=== PATIENT | male | born 1960 | race Caucasian/White ===

== ENCOUNTER → 2024-03-08 01:38 | Outpatient (CLI) | payer BC, SELFPAY ==
--- NOTE | 2024-03-08 06:45 | DI.CT_ITS ---
Exam(s) CT LOWER EXTREMITY LT WO EXAM: CT LOWER EXTREMITY LT WO CLINICAL HISTORY: PAIN,SURGICAL PLANNING,oa lt knee,closed fx with malunion,s82.009p,m17.12. TECHNIQUE: Imaging Protocol: Axial computed tomography images with coronal and sagittal reformatted images were created and reviewed. CONTRAST MATERIAL: Intravenous: None COMPARISON: DOC,DX XR KNEE 4V LT from 09/07/2023 FINDINGS: There is a small-moderate size joint effusion. There is patella [place]. There are multiple fracture fragments of the lower pole the patella which exh ibit nonunion and the patella proper is retracted proximally. There is some calcification noted in t he patellar ligament (which is attached to the most inferior fracture fragment of the multiple inferi or pole fragments.) There are no fractures of the femoral condyles nor evidence of tibial plateau fracture. There is a l oose calcified body evident within the posterior aspect of the medial compartment which appears to be immediately posterior to the posterior horn of the medial meniscus and this measures 8x 6 x 3 mm. F yvonne is noted posteriorly on the left side. Benign bone island is noted in the subarticular inner aspect of the medial femoral condyle. 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 Other findings as above. Joint effusion noted. RADIATION DOSE DELIVERED: 269.91mGy.cm Total DLP DATA REPOSITORY: All CT scans at this facility are submitted to the National Radiology Data Registry (NRDR) Dose Index Registry (DIR) with the [employer] (ACR). RADIATION OPTIMIZATION: All CT scans at this facility use at least one of these dose optimization te chniques: automated exposure control; mA and/or kV adjustment per patient size (includes targeted exa ms where dose is matched to clinical indication); or iterative reconstruction.
--- NOTE | 2024-03-08 11:10 | DI.MRI_ITS ---
Exam(s) MR LOWER JOINT LT WO EXAM: MR LOWER JOINT LT WO CLINICAL HISTORY: PAIN,SURGICAL PLANNING,closed fx patella with malunion,oa lt knee, m17.12 TECHNIQUE: Multiplanar multisequence MRI of the knee was performed. COMPARISON: CT CT LOWER EXTREMITY LT WO from 03/08/2024 FINDINGS: EFFUSION: There is a moderate-large knee joint effusion. There is also a Wilkins cyst in the medial po pliteal fossa which measures 5 cm craniocaudal by 1 cm maximum AP measurement by maximum width of 2 c m. Another smaller fluid collection is seen posteriorly just medial to the fibular head, possibly a para-articular ganglion at this level. MARROW:There are multiple large nonacute appearing fracture fragments off the inferior pole of the pa tella with nonunion. No other fractures evident. Small benign bone island is noted in the inner asp ect of the lateral femoral condyle. There is also a benign-appearing bone lesion in the distal metap hysis of the femur which measures 9 x 10 mm and has appearance of a probable benign enchondroma. The re is no surrounding bone edema to suggest that this is an aggressive lesion. PATELLOFEMORAL COMPARTMENT: The quadriceps tendon cannot be assessed accurately as it is mostly at of the field of view because of the patella sid here. The patellar ligament is attached to the most i nferior independent osteophytic fragment which is the inferior pole fragment. There is some mild mid level focal intrasubstance signal abnormality in the patellar ligament but no high-grade tear. Quadriceps tendon is difficult to assess on this study as there is patella sid and the quadriceps is out of the field of view.There is moderate narrowing of the retropatellar cartilage over the main fr agment.. CRUCIATE LIGAMENTS: Mild increased signal in superior ACL but no full-thickness tear.The posterior cr uciate ligament is intact. MEDIAL COMPARTMENT/MEDIAL MENISCUS: There is a complex oblique/radial tear in the medial meniscus pre dominately involving the posterior horn but also extending into the posterior aspect of the anterior horn. No prominent bucket-handle configuration. No flipped meniscal fragments evident. There is mild uniform thinning of the articular cartilage over the medial femoral condyle weight-bear ing surface. No subarticular intraosseous edema evident in the medial femoral condyle and medial tibi al plateau. No marginal osteophytes. There is a loose body in the posterior aspect of the medial comp artment behind the posterior horn of the medial meniscus which measures 8 mm wide by 6 mm AP by 4 mm craniocaudal. MEDIAL COLLATERAL LIGAMENT: Exhibits some mild increased signal inferiorly but no high-grade tear. LATERAL COMPARTMENT/LATERAL MENISCUS: The posterior horn of the lateral meniscus appears intact. Ther e is some tearing evident in the inner aspect of the anterior horn of the lateral meniscus evident.No flipped meniscal fragments. There is mild thinning of the articular cartilage in the lateral compart ment. No osteochondral defects. No prominent subarticular edema. ILIOTIBIAL BAND: Intact LATERAL COLLATERAL LIGAMENT COMPLEX: There is partial tearing of the superior aspect of the fibular c ollateral ligament. There is also abnormal signal at the femoral attachment site of the popliteus ten don component of the LCL complex. Thebiceps femoris tendon component of the lateral collateral ligame nt complex is intact. IMPRESSION: 1. Comminuted nonacute appearing nonunion fracture of the patella with patella Sid position of the m ain component of the patella. The quadriceps tendon is therefore outside of the field of view of thes e conventional knee sequences. Patellar tendon exhibits some internal signal abnormality but no full- thickness tear. There are degenerative changes in the remaining retropatellar cartilage. . 2. There is a complex tear of the posterior horn of the medial meniscus which also involves part of t he anterior horn. There is also a tear in the inner aspect of the anterior horn of the lateral menisc us. Posterior horn of the lateral meniscus appears intact. There is a an 8 x 6 x 4 mm loose body post erior to the posterior horn of the medial meniscus. There are mild osteoarthritic degenerative change s in the articular cartilage. No osteochondral defects evident in the medial lateral compartments and no significant subarticular bone edema evident in the medial lateral compartments. 3. No significant tears of the anterior posterior cruciate ligaments. 4. There is partial tearing of 2 components of the lateral collateral ligament complex, this at the l evel of the superior aspect of the fibular collateral ligament as well as at the femoral insertion si te of the popliteus tendon on the outer aspect of the lateral femoral condyle. The biceps femoris ten don component of the LCL complex is intact. 4. there is a small benign-appearing bone lesion in the distal femur metaphysis measuring 9 x 10 mm w hich has appearance of a probable benign enchondroma. 5. There is a prominent joint effusion and there is a Wilkins cyst in the medial popliteal fossa with m easurements as above. DATA REPOSITORY:
== END ==
PROVIDERS: PCP Family Medicine; Visit Provider Student in an Organized Health Care Education/Training Program
DX: S82.045A Nondisplaced comminuted fracture of left patella, initial encounter for closed fracture (principal); X58.XXXA Exposure to other specified factors, initial encounter
CPT/HCPCS: 73721; 73700

== ENCOUNTER 2024-04-04 04:57 | Outpatient (CLI) | payer BC, SELFPAY ==
[2024-04-04 14:20] LABS: HCT 41.6 % (40.0-50.0); HGB 14.5 g/dL (13.5-17.5); MCH 31.8 pg (27.0-33.0); MCHC 34.9 % (32.0-36.0); MCV 91 fL (80-95); MPV 11.1 fL (8.0-11.0); Platelet Count 157 10^3/uL (130-400); RBC 4.56 10^6/uL (4.36-5.78); WBC 6.97 10^3/uL (4.4-10.8)
[2024-04-04 15:07] LABS: Anion Gap 8.6 mmol/L (3-11); BUN 11 mg/dL (7-18); CO2 29.4 mmol/L (21.0-32.0); CREATININE 0.9 mg/dL (0.70-1.30); Calcium 9.1 mg/dL (8.5-10.1); Chloride 104 mmol/L (98-107); Estimated GFR 95.97 (mL/min/1.73m2); Glucose 79 mg/dL (74-106); Potassium 3.5 mmol/L (3.5-5.1); Sodium 142 mmol/L (136-145)
== END 2024-04-04 04:58 | disposition home or self-care (01) ==
LOC: LBO 04:57
PROVIDERS: PCP Family Medicine; Visit Provider Student in an Organized Health Care Education/Training Program
DX: M17.12 Unilateral primary osteoarthritis, left knee (principal); Z01.818 Encounter for other preprocedural examination
CPT/HCPCS: 36415; 80048; 85027

== ENCOUNTER 2024-04-04 15:38 | Outpatient (CLI) | payer BC, SELFPAY ==
--- NOTE | 2024-04-04 14:30 | DI.RAD_ITS ---
Exam(s) XR KNEE LT 1V XR STANDING ALIGNMENT EXAM: XR STANDING ALIGNMENT CLINICAL HISTORY: OA LEFT KNEE. TECHNIQUE: 2D digital imaging was performed. Standing AP views were performed from the pelvis throu gh the ankles. COMPARISON: DOC,DX XR KNEE 4V LT from 09/07/2023 CR XR KNEE LT 1V from 04/04/2024 FINDINGS: BONES: No acute fracture is present. Multiple bony densities are again noted inferior to the left pa tella. No bony destructive lesion is seen. Leg length discrepancy: The left femoral head bridge projects at approximately 1.5 cm superior to the right. JOINTS: Knees: The joint spaces are maintained. There is mild spurring of the medial femoral tibial joint of the left knee. The ankle joints are unremarkable. The hip joints are maintained. There is acetabular spurring bilaterally.. SOFT TISSUE: Significant skin calcifications bilateral lower legs. Vascular calcifications also pres ent. IMPRESSION: Multiple bony fragments beneath the left patella. Approximate 1.5 centimeter leg length discrepancy, the left 1.5 cm cm larger than the right. DATA REPOSITORY: RADIATION DOSE DELIVERED:
== END 2024-04-04 15:39 | disposition home or self-care (01) ==
LOC: DIORS 15:38
PROVIDERS: PCP Family Medicine; Visit Provider Physician Assistant
DX: M17.12 Unilateral primary osteoarthritis, left knee (principal)
CPT/HCPCS: 73560; 77073

== ENCOUNTER 2024-04-18 06:47 | Day surgery (SDC) | payer BC, SELFPAY ==
[2024-04-18] VITALS (31 sets, daily range): BP systolic 132–185; BP diastolic 73–109; PULSE 49–74; RESP 12–24; TEMP 35.8–36.6; O2SAT 89–99; BMI 40.3
--- NOTE | 2024-04-18 07:23 | DSE_ITS ---
Date of service: 04/18/24 Time of Service: 07:35 Discharge Plan Disposition Patient Disposition: Home Condition: Good Discharge Details Reason For Visit: Left knee DJD Attending Provider: Brayden Brewster Primary Care Provider: Johanna Woo Home Meds and New Rx's Prescriptions: New acetaminophen 500 mg tablet 1,000 mg PO Q8H PRN Qty: 90 0RF Rx Instructions: Take two tablets up to every 8 hours as needed for pain aspirin 81 mg tablet,delayed release (DR/EC) 81 mg PO BID 30 Days Qty: 60 0RF celecoxib [Celebrex] 200 mg capsule 200 mg PO BID PRNQty: 60 0RF Rx Instructions: Take one tablet twice daily for pain and inflammation dexamethasone 4 mg tablet 4 mg PO DAILY Qty: 2 0RF Rx Instructions: Take one tablet once daily for two days docusate sodium [Colace] 100 mg capsule 100 mg PO BID Qty: 30 0RF gabapentin 300 mg capsule 300 mg PO QHS Qty: 14 0RF Rx Instructions: Take one tablet at bedtime pantoprazole 40 mg tablet,delayed release (DR/EC) 40 mg PO DAILY Qty: 14 0RF Continued saw palmetto 160 mg capsule 160 mg PO DAILY Rx Instructions: give with meal/snack metformin 500 mg tablet 500 mg PO BID lisinopril 20 mg tablet 20 mg PO DAILY allopurinol 100 mg tablet 100 mg PO DAILY glipizide 5 mg tablet 5 mg PO BID atorvastatin 10 mg tablet 10 mg PO DAILY Discontinued aspirin [Adult Aspirin Regimen] 81 mg tablet,delayed release (DR/EC) 81 mg PO DAILY Hold Instructions: Pt Stopped/Never Started No Action oxycodone 5 mg tablet 5 mg PO Q4H MDD 6 tabs PRN (Reason: pain) Qty: 18 0RF Rx Instructions: Take one tablet up to every 4 hours as needed for severe postoperative pain Discharge Instructions Additional Instructions: Total Knee Discharge Instructions Activity: The most important activity is to walk and to work on gentle motion (both flexion and extension). You should try to take short walks a few times a day. It is important that when resting you work on keeping the knee straight. Avoid putting a pillow behind the knee as this will encourage flexion. Work on range of motion exercises as provided by Physical Therapy. - Start outpatient physical therapy within 2 weeks. - You should wear the JACINTO hose on both legs for 2 weeks. You may remove these at night. You may also use any compression sock in place of the JACINTO hose. - Utilize [employer] to review exercises, see videos on exercises and obtain basic information pertaining to your surgery and your recovery. Dressing: Remove the Nicko wrap by 2 days after your surgery and put on the JACINTO stocking given to you from the hospital. Keep the surgical dressing (underneath the NICKO wrap) in place for at least one week. After the first week it may be removed and replaced with light gauze and tape or nothing. The wound and dressing may get wet after 3 days but avoid soaking the dressing or otherwise it will need to be changed. Many people prefer covering the dressing with cling wrap (saran wrap) to minimize it from getting soaked. If it gets wet, just pat dry. If it starts to peel off then it will need to be changed. Medications: - You should take Tylenol and anti-inflammatory Celebrex as your primary pain control medications. If the Celebrex is too expensive or not covered, please call the office for another alternative (Advil/Ibuprofen or Naproxen/Aleve) - You have been prescribed a stronger pain medication Oxycodone for breakthrough pain, take as needed as prescribed. - You have also been prescribed a stomach acid reduction agent Pantoprozole to help reduce stomach acid and reflux. - You have been prescribed Gabapentin to take at night for restlessness and nerve pain. - You will be taking Aspirin 81mg twice a day for DVT prevention unless instructed otherwise. - You have also been prescribed Decadron to take to control post-operative nausea and pain. You will start this tomorrow. - If you have constipation you should take Colace (which has been prescribed) or Miralax (which is available [id number]). It takes most people 3-4 days to have a bowel movement. Follow-up: 2 weeks If you have any acute concerns or questions, please do not hesitate to contact the office at [phone]. You may contact Dr. Brewster with any questions after hours through the hospital at [phone] or on his cell phone at [phone]. Stand Alone Forms: Anesthesia Discharge Inst., Janeys.Nerve Block Instructions, Jovani Coughlin ([facility]) Referrals: Brayden Brewster MD [ [facility]] - 05/01/24 11:00 am Equipment/Supplies: Walker Activity:: Activity as Tolerated Remove Dressings/Wound Care:: Do Not Remove Shower/Bathe:: Cover Diet:: As Tolerated Discharge Orders Discharge Orders: Discharge Order (Routine); Ordered 04/18/24 Ordered By: Sarahi Dorantes Discharge Data Discharge Date/Time-TO BE ENTERED AT DEPARTURE: 04/18/24 14:46 DS: Summary Time Spent with Patient providing and/or coordinating discharge services: Less than 30 minutes Status at Discharge Functional status at discharge: uses cane/walker Overall status at discharge: patient is progressing back to baseline Mental Status: mental status grossly normal Speech and Movement: speech and movement normal Mood: congruent mood Affect: normal affect Quality:SDOH Health Related Social Needs: No Data to Display Exam Psych Mental Status: mental status grossly normal Speech and Movement: speech and movement normal Mood: congruent mood Affect: normal affect PFSH All Active Problems (Updated 04/18/24 @ 10:32 by Supriya Lugo RN) History of total left knee replacement (Acute 04/18/24) Diabetes (Chronic) Hypertension (Chronic) Hyperlipidemia (Acute) Closed fracture of patella with malunion (Acute) Surgical History (Updated 04/18/24 @ 10:32 by Supriya Lugo RN) Status post left rotator cuff repair Status post arthroscopy of left knee Left patella fracture Social History Smoking/Tobacco Use Status: Never Smoking risk assessment performed?: Yes Substance use type: does not use Housing: house Do you feel safe at home: Yes Do you feel safe in your relationship?: Yes Time Spent with Patient Time Spent with Patient: <45 minutes Time was spent: preparing to see the patient(eg.review tests), ordering medications,tests, procedures and counseling the patient
[2024-04-18] MEDS: Lactated Ringers 1,000 ML 80 ML IV (08:00)
[2024-04-18] MEDS: Acetaminophen 500 MG TAB 1000 MG PO (08:15)
[2024-04-18] MEDS: Celecoxib 200 MG CAP 400 MG PO (08:16)
[2024-04-18] MEDS: Gabapentin 300 MG CAP PO (08:16)
--- NOTE | 2024-04-18 08:40 | W.ANESPRE ---
General Info Date of Service Date Performed: 04/18/24 Height: 5 ft 10.5 in Weight: 129.2 kg Body Mass Index (BMI): 40.3 Surgical Procedure: Operation Date: 04/18/24 09:25 Proposed Procedure Side Surgeon p Knee Total Arthroplasty, Cementless CR Left Brayden Brewster MD Meds Allergies and Home Medications Allergies Allergy/AdvReac Type Severity Reaction Status Date / Time shellfish Allergy Severe Anaphylaxis Uncoded 04/18/24 07:18 Home Medication Medication Instructions Recorded saw palmetto 160 mg capsule 160 mg PO DAILY 02/21/24 allopurinol 100 mg tablet 100 mg PO DAILY 03/20/24 atorvastatin 10 mg tablet 10 mg PO DAILY 03/20/24 glipizide 5 mg tablet 5 mg PO BID 03/20/24 lisinopril 20 mg tablet 20 mg PO DAILY 03/20/24 metformin 500 mg tablet 500 mg PO BID 03/20/24 acetaminophen 500 mg tablet 1,000 mg (2 x 500 mg) PO Q8H PRN 04/18/24 pain #90 tabs aspirin 81 mg tablet,delayed 81 mg PO BID 30 days #60 tabs 04/18/24 release celecoxib 200 mg capsule (Celebrex) 200 mg PO BID PRN #60 caps 04/18/24 dexamethasone 4 mg tablet 4 mg PO DAILY #2 tabs 04/18/24 docusate sodium 100 mg capsule 100 mg PO BID #30 caps 04/18/24 (Colace) gabapentin 300 mg capsule 300 mg PO QHS #14 caps 04/18/24 oxycodone 5 mg tablet 5 mg PO Q4H PRN #18 tabs 04/18/24 pantoprazole 40 mg tablet,delayed 40 mg PO DAILY #14 tabs 04/18/24 release Current Visit Medications: Current Medications Generic Name Dose Route Start Last Admin Trade Name Freq PRN Reason Stop Dose Admin Acetaminophen 1,000 mg 04/18/24 06:00 04/18/24 08:15 Acetaminophen 500 Mg Tab PO 04/18/24 16:00 1,000 mg PREOP FABRICIO Administration Celecoxib 400 mg 04/18/24 06:00 04/18/24 08:16 Celecoxib 200 Mg Cap PO 04/18/24 16:00 400 mg PREOP FABRICIO Administration Gabapentin 300 mg 04/18/24 06:00 04/18/24 08:16 Gabapentin 300 Mg Cap PO 04/18/24 16:00 300 mg PREOP FABRICIO Administration Hydromorphone HCl 0.5 mg 04/18/24 07:19 Hydromorphone 2 Mg/Ml Syr IVP 05/18/24 07:18 Q2H PRN PRN Cefazolin Sodium 3,000 mg/ 100 mls @ 200 mls/hr 04/18/24 06:00 Sodium Chloride IVPB 04/18/24 16:00 PREOP FABRICIO Ringer's Solution 1,000 mls @ 80 mls/hr 04/18/24 06:00 04/18/24 08:00 IV 05/17/24 23:59 80 mls/hr INFUSION FABRICIO Administration Tranexamic Acid/Sodium Chloride 1,000 mg in 100 mls @ 600 mls/hr 04/18/24 06:00 IVPB 04/18/24 16:00 PREOP FABRICIO Cefazolin Sodium/Dextrose 1 gm in 50 mls @ 100 mls/hr 04/18/24 08:00 Ancef Duplex IVPB 04/19/24 00:29 Q8H FABRICIO IV Miscellaneous Supplies 1 each 04/18/24 06:00 Iv Access IV 05/17/24 23:59 DIRECTED FABRICIO Oxycodone HCl 0 mg 04/18/24 07:19 Oxycodone 5 Mg Tab PO 05/18/24 07:18 Q3H PRN PRN Pain Sodium Chloride 0 ml 04/18/24 06:00 Normal Saline Flush 10 Ml Syr IV 05/17/24 23:59 PRN PRN Sodium Chloride 0 ml 04/18/24 06:00 Normal Saline 10 Ml Vial IJ 05/17/24 23:59 DIRECTED PRN Sterile Water 0 ml 04/18/24 06:00 Water,Injection,Sterile 10 Ml Vial IJ 05/17/24 23:59 DIRECTED PRN PFSH Active Problems Active Problems: Problem Status Onset Code Diabetes E11.9 Hypertension I10 Hyperlipidemia E78.5 Osteoarthritis of left knee M17.12 Closed fracture of patella with malunion S82.009P Surgical History Surgical History (Updated 04/04/24 @ 15:02 by Sarahi Dorantes) Status post left rotator cuff repair Status post arthroscopy of left knee Left patella fracture Tobacco Smoking/Tobacco Use Status: Never Substance Use Substance use type: does not use Vital Signs and Lab Results Vital Signs Most Recent Vital Signs in EMR: Most Recent Vital Signs Temp Pulse Resp BP Pulse Ox 36.6 C 65 15 147/82 H 97 04/18/24 07:27 04/18/24 07:27 04/18/24 07:27 04/18/24 07:27 04/18/24 07:27 Point of Care Results Point of Care Results: Finger Stick Blood Glucose 151 04/18/24 07:39 Lab Results Blood Type / Crossmatch: No Data to Display Complete Blood Count: White Blood Count 6.97 10^3/uL (4.4-10.8) 04/04/24 14:05 Red Blood Count 4.56 10^6/uL (4.36-5.78) 04/04/24 14:05 Hemoglobin 14.5 g/dL (13.5-17.5) 04/04/24 14:05 Hematocrit 41.6 % (40.0-50.0) 04/04/24 14:05 Platelet Count 157 10^3/uL (130-400) 04/04/24 14:05 Complete Metabolic Panel: Sodium 142 mmol/L (136-145) 04/04/24 14:05 Potassium 3.5 mmol/L (3.5-5.1) 04/04/24 14:05 Chloride 104 mmol/L (98-107) 04/04/24 14:05 Carbon Dioxide 29.4 mmol/L (21.0-32.0) 04/04/24 14:05 BUN 11 mg/dL (7-18) 04/04/24 14:05 Creatinine 0.9 mg/dL (0.70-1.30) 04/04/24 14:05 Est GFR (CKD-EPI 2020) 95.97 (mL/min/1.73m2) 04/04/24 14:05 Calcium 9.1 mg/dL (8.5-10.1) 04/04/24 14:05 Glucose 79 mg/dL (74-106) 04/04/24 14:05 Liver Function Panel: No Data to Display Coagulation Panel: No Data to Display Cardiac Panel: No Data to Display Arterial Blood Gas: No Data to Display Venous Blood Gas: No Data to Display Pancreas Panel: No Data to Display Thyroid Panel: No Data to Display Infectious Disease: No Data to Display Blood Cultures: No Data to Display Toxicology Panel: No Data to Display Anesthesia Assessment and Plan Anesthesia History Personal History: No History of Anesthesia Complications Family History: No Family History of Anesthesia Complications Exercise Tolerance Exercise Tolerance: Metabolic Equivalents>4 Pertinent Negatives Pertinent Negatives: No Symptoms of GERD, No Major Cardiovascular Symptoms or Complaints, No Major Pulmonary Symptoms or Complaints and No History of CVA/TIA Cardiac & Pulmonary Exam Cardiac Exam: Normal S1/S2 Heart Sounds Pulmonary Exam: Clear Bilateral Breath Sounds Implantable Cardiac Device Does patient have a Pacemaker or an ICD?: No Airway Exam Known Difficult Airway: No Mallampati Class: 3 Mouth Opening: Normal (> 3cm) Thyromental Distance: Greater than 3 cm Neck Range of Motion: Limited ROM (pinched nerve right side at times) Neck Circumference: Normal Teeth Condition: Normal Dentition ASA Classification ASA Score: ASA 3 Emergency Case?: No NPO Status NPO Status: NPO Clears >2 hours, Solids >8 hours Anesthesia Plan Resuscitation Status: Full Code Anesthesia Technique: General Anesthesia Airway Planned: LMA Pain Management: Surgeon and patient request nerve block Monitors Used: Standard Monitors Preoperative Comments:: 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
[2024-04-18] MEDS: ceFAZolin 3,000 MG in Normal Saline 100 ML 200 MG IVPB (09:32)
[2024-04-18] MEDS: TRANEXAMIC ACID/SOD. CHL. 1,000 MG/100 ML BAG 600 MG IVPB (09:42)
--- NOTE | 2024-04-18 10:02 | W.ANESNERVE ---
Nerve Block Single Injection Procedure Date and Time Date Performed: 04/18/24 Procedure Start: 09:12 Location Where Procedure Performed Procedure Location: Day Surgery Unit Reason Performed: Postoperative Analgesia Requesting Provider: Brayden Brewster Timeout Performed Timeout Performed: Yes Monitoring Used ECG, Blood Pressure, SpO2 and See EMR for corresponding vital signs Sterility Sterility: Hand Hygiene, Surgical Cap, Surgical Mask, Sterile Gloves, Sterile Drape/Sheet and Chlorhexidine Sedation Given During Procedure Sedation Given (Indicate Dose Given): No Sedation given Patient Mental Status Patient Mental Status: Awake Nerve Block 1st Nerve Block: Laterality: Left Block Type: Adductor Canal Ultrasound Image Saved?: Yes Needle / Catheter Used: 100mm SonoPlex II Local Anesthetic Bolus (Indicate Dose Given): Lidocaine used for local infiltration of skin, Injected in 3-5ml increments after negative blood aspiration and Bupivacaine 0.25% Dose:: 15 ml Additives (Indicate Dose Given): None Ultrasound: Sterile probe cover and gel used Nerve Stimulator: Supplement to Ultrasound use and No twitch or parasthesia noted < 0.5 mA Paresthesia: None Procedure Tolerated: No Complications and Patient tolerated well Procedure Outcome: Successful Performed By: Luh Atkins
[2024-04-18] MEDS: fentaNYL 100 MCG/2 ML VIAL IVP (11:54)
[2024-04-18] MEDS: HYDROmorphone 2 MG/ML SYR IVP ×3 (11:59→12:27)
--- NOTE | 2024-04-18 12:58 | W.ANESPOSTOP ---
Postoperative Evaluation Date, Time and Location Date Performed: 04/18/24 Time Performed: 12:59 Patient Location: Day Surgery Unit Vital Signs Most Recent Imported Vital Signs: Most Recent Vital Signs Temp Pulse Resp BP Pulse Ox 36 C L 54 L 16 138/78 95 04/18/24 12:44 04/18/24 12:44 04/18/24 12:44 04/18/24 12:44 04/18/24 12:44 Pain Score Most Recent Pain Score: Most Recent Pain Score Pain Level 3 04/18/24 12:44 Assessment Mental Status: Awake (Alert & Oriented to Patient Baseline) Airway and Respiratory Function: Patent airway with normal (patient baseline) respiratory exam Cardiovascular Function: Hemodynamically Stable Hydration Status: Adequately Hydrated Nausea & Vomiting: No Nausea or Vomiting Pain: Pain is tolerable per patient Peripheral Nerve Block: Regional nerve block not resolved at time of post operative discharge
--- NOTE | 2024-04-18 14:04 | IN_ITS ---
PT Notes Visit Reasons: Left knee DJD Physical Therapy Day Surgery Initial Evaluation Date: 04/18/2024 Referring Doctor: MARY KAY Donohue PT Orders: PT CONSULT: S/P Ortho Surgery Precautions: Per Dr. Brewster, WBAT on the left LE with AD. Patient Profile/Admitting Diagnosis: Patient is a 64-year-old male with degenerative joint disease of the left knee and status post left total knee arthroplasty on postoperative day 0. PMHX: Surgical History (Updated 04/04/24 @ 15:02 by Sarahi Dorantes) Status post left rotator cuff repair Status post arthroscopy of left knee Left patella fracture Social History/Home Situation: Lives with in a private home with 2 steps to enter with rails on both sides. Independent with all aspects of ADLs prior to surgery. Equipment Owned/DME: None Subjective: Reported 2?3/10 pain in the left knee at rest and with movement. Denied headache, chest pain, and lightheadedness throughout session. Objective: General Observation: PRISCILLA wraps to the left LE. Cryo/Cuff to left knee. TEDS to R leg/foot. Mental Status: A and O x 4 Pain: As above ROM: Right Lower Extremity: Hip flexion WFL. Hip abduction WFL. Knee flexion WFL. Ankle dorsiflexion WFL. Ankle plantarflexion WFL. Left Lower Extremity: Hip flexion WFL. Hip abduction WFL. Knee flexion 30 degrees to 95 degrees. Knee extension -30 degrees ankle dorsiflexion WFL. Ankle plantarflexion WFL. Strength: Right Lower Extremity: Hip flexors 5/5. Hip abductors 5/5. Knee flexors 5/5. Kne e extensors 5/5. Ankle dorsiflexors 5/5. Ankle plantarflexors 5/5. Left Lower Extremity:Hip flexors 4-/5. Hip abductors 4-/5. Knee flexors 3-/5. Knee extensors 3-/5. Ankle dorsiflexors 5/5. Ankle plantarflexors 5/5. Sensation: Intact as to pain and light pressure in bilateral lower extremities Bed Mobility/Transfers: Minimal cueing provided for use of B hands as needed for support, movement s equence, AD management, and posture to reduce fall risk and minimize pain report Supine to sit stand by assist Sit to stand stand by assist Stand to sit stand by assist Bed to chair stand by assist Gait: Facilitated safe and correct performance of level surface ambulation covering a distance of 150 feet using step through reciprocal heel-toe gait pattern requiring only standby assist and front wheeled walker with minimal verbal cueing provided for safe gait pattern, AD management, and posture to reduce fall risk and minimize pain report. Stairs guided patient with safe and correct negotiation of 3 x 4 inch steps and 2 x 6 inch steps while holding onto bilateral rails with step to gait pattern requiring only minimal verbal cueing for safe movement sequence, increased knee flexion on the left at each ascent, and posture to minimize pain report and reduce fall risk. Balance: Static Sitting: Normal Dynamic Sitting: Normal Static Standing: Fair Dynamic Standing: Fair Special Tests: Mobility Limitations Standardized Measure [facility]-PAC 6 clicks Basic Mobility Inpatient Short Form: Raw Score: 24 CMS Score: 0 percent deficit Informed Consent/Education: Patient instructed in purpose of PT consult. Packet containing TKA exercise protocol has been given to patient. Education and training on initial set of exercises that can be done at home have been completed with patient. Trained patient with correct performance of exercises below to maximize motor control, joint flexibility, soft tissue extensibility of the L knee musculature: Access Code: [email or web address] URL: [email or web address] Date: 04/18/2024 Prepared by: Karina Meyer Exercises - Supine Quad Set - 1 x daily - 7 x weekly - 1 sets - 10 reps - 5 hold - Supine Heel Slide - 1 x daily - 7 x weekly - 1 sets - 10 reps - 5 hold - Supine Ankle Pumps - 1 x daily - 7 x weekly - 1 sets - 10 reps - 5 hold - Small Range Straight Leg Raise - 1 x daily - 7 x weekly - 1 sets - 10 reps - 5 hold - Seated March - 1 x daily - 7 x weekly - 1 sets - 10 reps - 5 hold Assessment: Patient requires use of a front wheeled walker for all mobility ADL performance to maximize independence and reduce fall risk. Patient presents with clinical signs and symptoms consistent with current/admitting diagnoses that have resulted to mobility limitations, gait instability, generalized weakness, and impairment of motor control as demonstrated by the following impairment level findings: 1. Decreased strength to left knee major muscle groups 2. Impaired standing balance 3. Limitation of joint range of motion in left knee Impairments are contributing to the following functional limitations: 1. Inability to safely ambulate without assistive device 2. Increase completion time for mobility ADL performance 3. Increased fall risk Patient is assessed as a 38666 moderate complexity based on the following: History: 64-year-old male with impairment level findings, functional limitations, and past medical history as indicated above Examination: Demonstrable impairment in strength, balance, and mobility level with underlying impairments and functional limitations as documented above Presentation: Evolving Decision Makin moderate complexity Goals: N/A. PT evaluation and 1-2 treatment sessions only for functional mobility training using recommended AD and for HEP instruction. Plan of Care/Treatment Plan: N/A. PT evaluation and 1-2 treatment session only for functional mobility training using recommended AD and for HEP instruction. DISCHARGE RECOMMENDATIONS: Home when medically cleared by orthopedic surgeon. Recommend outpatient PT services in order to optimize functional mobility outcomes and facilitate return to independent community ambulation without an assistive device. TREATMENT CODE/TIME: 88263 x 20 minutes for 1 unit, 19231 x 16 minutes for 1 unit (13:25-13:58). Thank you for the opportunity to participate in the care of this patient. Please sign an return this page within 30 days if you agree with the above POC. Thank you! Physician Signature Date [facility] Thank you for the opportunity to participate in the care of this patient. Karina Meyer PT, DPT, CLT [facility] [place], [place]
--- NOTE | 2024-04-18 15:41 | ROE_ITS ---
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 Depuy Attune Cementless Cruciate Retaining Femoral Component, Size 8 2. Depuy Attune Cementless Fixed Bearing Tibial Component, Size 7 3. Depuy Attune 8x5 CR/FB Poly 4. Depuy Attune Patellar Component, Size 41 Indications: I have seen Kari in clinic for symptoms of knee arthritis with a chronic patellar malunion, confirmed with radiographic findings. He has exhausted nonoperative methods and was having significant limitations in daily function and desired better function and less pain. I discussed the technical details of a knee replacement. I explained the risks of the procedure to include, but not limited to, bleeding, infection, pain, stiffness, fracture, damage to nerves and vessels, damage to muscles and tendons, loosening, need for repeat procedure, blood clot and cardiopulmonary demise. Despite these risks, Kari elected to proceed. Findings: There was notable arthritic change within the patellofemoral compartment. The medial lateral compartments had chondromalacia and complex meniscal tearing. The patella had significant deformity with a nonunion between 2 primary fragments which provided increased complexity in placement of the patellar component and obtaining a flat patellar surface. Procedure Description: Kari was greeted in the preoperative holding area where the correct side was identified and marked. The consent was reviewed with the patient and signed. The history and physical was updated. All questions were answered. Preoperative medications were administered: Acetaminophen 1000mg, Celebrex 400mg, and Gabapentin 300mg. An adductor canal block was then administered by the anesthesia team in the DSU. He was taken back to the operating room. A general anesthestic was then administered. The patient was placed into the supine position on the operating room table. A nonsterile tourniquet was placed high onto the leg but only used for cementing. Posts were placed for positioning during the procedure. All bony prominences were well padded. Prophylactic antibiotics in the form of Cefazolin were administered. 1g of Tranxemic Acid was given intravenously within 30 minutes of incision. The left leg was then prepped with Chloraprep and draped in a standard fashion with impervious stockinette. A second prep with Chloraprep was performed prior to application of Iodine impregnated skin protection. A timeout to confirm correct identity, side and site, procedure, allergies, anesthesia, and medical concerns was performed. With the knee in some flexion, a midline incision was made overlying the knee. Full thickness skin flaps were raised once the extensor mechanism was encountered. These were raised medially and laterally. Any bleeding was controlled with electrocautery. Once the extensor mechanism was fully exposed, a medial parapatellar arthrotomy was performed in a flexed position. All bleeding from the arthrotomy and the geniculate arteries was coagulated. A medial subperiosteal peel was performed with electrocautery to the midcoronal plane. The fat pad was removed while keeping the patellar tendon protected. The anterior distal femur synovium was removed for later visualization. The patella was inspected. The size of patella was quite large, nearly 50 mm from medial to lateral and 80 mm proximal to distal at a minimum. There was soft tissue interposed within some of the bone and surrounding enveloping part of the patellar surface with notable chondromalacia. There was a primary soft tissue line running through the middle of the patella which had no gross motion but on extremes of manipulation had some slight flex. This chronic nonunion was not overly unstable and therefore I did not proceed with any other nonunion takedown and repair and would later work to place the patellar component and this nonunion mass. Then, the ACL and PCL were resected and the anterior horn of the lateral meniscus was transected. The knee was then flexed with the patella everted. Using a step drill, and based on preoperative templating, the femoral canal was entered. This was done with a step drill without any difficulty. The intramedullary distal femoral cut guide was inserted, set to a 5 degree valgus cut and 9mm cut thickness. The distal femoral cut guide was then held in position and pinned. With the soft tissues protected, the distal cut was performed. This was passed over a few times to ensure a planar cut. I then turned attention to the tibia. The extramedullary guide was placed onto the leg. The distal aspect was slid medial to adjust for position of center of ankle and stay in line with shaft of the tibia. Approximately 3-5 degrees of posterior slope was kept in the proximal cutting guide. The center of the guide was aligned with the PCL. The stylus was used to assess cut thickness. The medial side, most involved side, was set for a 4mm cut. This was then held in position and pinned into place with 2 additional pins and a cross pin for stability. The medial and lateral collateral ligaments were protected and the cut was performed. With this completed, it was assessed and noted to be of appropriate dimensions. The guide was removed. A spacer block was inserted and the knee was brought into extension. The 5mm spacer block provided full extension, without hyperextension and with stability of both the medial and lateral collateral ligaments was assessed. The pins from the femur and the tibia were then removed. The distal femur was then sized. The anterior stylus was placed onto the lateral ridge of the anterior femur. This indicated a size 8 femur. The external rotation of the guide was adjusted to 3 degrees to match the epicondylar axis, perpendicular to Irena?s line. The 4-in-1 cutting guide was the placed. The posterior medial femur cut was evaluated and appeared of good thickness. The spacer block was inserted underneath the cutting guide and stability was confirmed in 90 degrees of flexion. An boom wing was used to confirm appropriate position of the anterior cut to avoid notching. This cutting guide was ensured to be flush on the cut surface and then pinned into place with headed pins. While protecting the soft tissues, quad tendon, and collateral ligaments, the anterior and posterior cuts were performed with a saw. The central two pins were removed and the posterior and anterior chamfers were cut next. The notch-cutting guide was placed. This was pinned to lateralize the femoral component as much as possible while keeping it flush on the cut surface. This was then pinned into position. A reciprocating saw was used to make the notch cut. A rasp smoothed the cut surfaces. The medial and lateral menisci were removed. A trial femoral component was then inserted, impacted down to the cut surfaces, and the lug holes were drilled. A provisional trial tibial component was placed and the knee was brought through range of motion. There was noted to be excellent extension and flexion. There was no significant instability. A size 5mm polyethylene component provided the best range of motion and stability with less than 2mm gapping with medial and lateral stress and full extension without significant hyperextension. The tibial cut surface was fully exposed. The tibia was then sized as a 7. The tibia had been previously marked during trialing to correspond to the center of the tibial component to help with rotation. The trial was aligned to this monalisa, approximately rotated to the medial 1/3rd of the tibial tubercle. The trial was pinned into place. The tibia was prepared with a reamer and a keel punch and lug holes. Attention was then turned to the patella. Given the malunion and nonunion of the patella this provided some extra difficulty and deviation from routine patellar preparation. Using a freehand technique I began by trying to establish a flat surface to be utilized. The quadriceps and patellar tendon enveloped the patellar mass with significant thickness. Even at 20 mm thick there are tendinous attachments seen on the patella. And trying to minimize the takedown of these components but also keep some thickness in the patella for mechanical advantage, I brought the patella back to a level surface over the entire size of the patellar bone components. The fracture line running through the mid to distal portion of the patella was once again inspected and showed soft tissue. However, there was some slight flexed with maximal motion of the patella but there was no gross diastases at any point. Therefore, I continued with placement of the patellar component. In order to prevent any loosening I did not want to cross the fracture line with the patellar button lugs but placed the patellar button as distal as possible. The 41 mm patellar button still look quite small in comparison to the size of his patellar mass. Nevertheless, this was placed and trialed such that the patella had interaction with the trochlea from extension through flexion. Then, the lugs were drilled. The trial components were removed. The final components were opened on the back table. The periosteal and capsular tissues, especially posteriorly, around the knee were then systematically injected with a periarticular cocktail consisting of 246mg of Ropivacaine, 0.5mg of Epinephrine, 0.08mg of Clonidine, and 30mg of Ketorolac, diluted to 100cc. On the back table, with the implants opened, the cement was mixed. One batch of high viscosity cement was prepared with vacuum assistance. After the cement was ready a small amount was placed on the cut surface of the patella and the patellar button was clamped into position and held. While the cement was hardening, the cementless knee components were placed. Starting with the tibial component, the tibia was subluxed anteriorly and the lug holes of the component were lined up. The tibia was then impacted with an impactor and mallet until the tibial component was in contact with the tibia. The final polyethylene component was inserted. Then, the femoral component was inserted. The lug holes were aligned and the component was impacted into position. The knee was irrigated with Surgiphor Betadine solution. This was allowed to sit in the knee for 3 minutes and then it was irrigated out with saline. After the cement had finally cured, approximately 15min, the clamp was removed from the patella and the knee was taken through range of motion. The patella was tracking with a no-thumbs technique. The capsule was then reapproximated with a No. 1 Vicryl at multiple locations. The capsule was finally closed with a No. 2 Stratafix, barbed suture. The second dosing of 1g TXA was started. Deep tissues were then reapproximated with 0 Vicryl and 2-0 Vicryl. The skin was closed with a running 3-0 Monocryl in a subcuticular fashion. This was reinforced with skin glue. A Mepilex silver dressing was applied along with a [id number] PRISCILLA wrap. A CryoCuff was applied. Kari was transferred to the hospital bed without difficulty an suffering no apparent complication. Kari has a good prognosis. Physical therapy will start today and without restrictions, weight-bearing as tolerated. Aspirin 81mg BID will be used for DVT prophylaxis.
== END 2024-04-18 14:46 | disposition home or self-care (01) ==
PROVIDERS: PCP Family Medicine; Visit Provider Student in an Organized Health Care Education/Training Program
PROC: (CPT 27447; principal; 2024-04-18 09:15)
DX: M17.12 Unilateral primary osteoarthritis, left knee (principal); E11.9 Type 2 diabetes mellitus without complications; I10 Essential (primary) hypertension; E78.5 Hyperlipidemia, unspecified; Z79.84 Long term (current) use of oral hypoglycemic drugs; S82.092 Other fracture of left patella; X58.XXXD Exposure to other specified factors, subsequent encounter
CPT/HCPCS: 27447; 76942; 97162; 97530; C1776; J0665; J0690; J1100; J1170; J1805; J2405; J2704; J3010

== ENCOUNTER 2024-05-01 12:32 | Outpatient (CLI) | payer BC, SELFPAY ==
--- NOTE | 2024-05-01 11:15 | DI.RAD_ITS ---
Exam(s) XR KNEE LT 1V XR STANDING ALIGNMENT EXAM: XR STANDING ALIGNMENT CLINICAL HISTORY: 1ST POST L TKA. TECHNIQUE: 2D digital imaging was performed. Standing AP views were performed from the pelvis throu gh the ankles. COMPARISON: CR XR STANDING ALIGNMENT from 04/04/2024 CR XR KNEE LT 1V from 04/04/2024 CR XR KNEE LT 1V from 05/01/2024 FINDINGS: BONES: No acute fracture is present. No bony destructive lesion is seen. Leg length discrepancy: Minimal overall leg length discrepancy with the left femoral head projecting a few millimeters superior to the right. JOINTS: Knees: A left total knee prosthesis has been placed since the prior exam and show satisfactor y alignment. The right knee joint spaces are maintained. The ankle joints are unremarkable. The hip joint spaces are maintained. Bilateral acetabular spurring. SOFT TISSUE: Swelling anterior to left patella. Vascular calcifications. Bilateral skin calcificati ons in the lower legs. IMPRESSION: Status post left knee prosthesis. Minimal overall leg length discrepancy. DATA REPOSITORY: RADIATION DOSE DELIVERED:
== END 2024-05-01 12:33 | disposition home or self-care (01) ==
LOC: DIORS 12:32
PROVIDERS: PCP Family Medicine; Visit Provider Student in an Organized Health Care Education/Training Program
DX: Z96.652 Presence of left artificial knee joint (principal)
CPT/HCPCS: 73560; 77073

== ENCOUNTER 2024-08-24 15:17 | Outpatient (CLI) | payer BC, SELFPAY ==
--- NOTE | 2024-08-24 13:45 | DI.RAD_ITS ---
Exam(s) XR KNEE LT 3V AP,LAT,LEXUS EXAM: XR KNEE LT 3V AP,LAT,LEXUS CLINICAL HISTORY: L TKR Pain. TECHNIQUE: 2D digital imaging was performed. Three images were obtained. Merchant's, AP and lateral views were obtained. COMPARISON: CR XR STANDING ALIGNMENT from 05/01/2024 CR XR KNEE LT 1V from 05/01/2024 FINDINGS: BONES: There are stable post operative changes of a left total knee replacement present. No fracture or dislocation. JOINTS: The orthopedic hardware is in good position. No evidence of hardware loosening. SOFT TISSUE: Atherosclerotic calcification is present. IMPRESSION: Stable left total knee arthroplasty. DATA REPOSITORY: RADIATION DOSE DELIVERED:
== END 2024-08-24 15:18 | disposition home or self-care (01) ==
LOC: DIORS 15:18
PROVIDERS: PCP Family Medicine; Visit Provider Physician Assistant
DX: M25.562 Pain in left knee (principal)
CPT/HCPCS: 73562

== ENCOUNTER 2025-04-19 08:59 | Outpatient (CLI) | payer BC, SELFPAY ==
--- NOTE | 2025-04-19 08:45 | DI.RAD_ITS ---
Exam(s) XR KNEE LT 2V AP,LAT EXAM: XR KNEE LT 2V AP,LAT CLINICAL HISTORY: ANNUAL F/U L TKA. TECHNIQUE: 2D digital imaging was performed. COMPARISON: CR XR KNEE LT 3V AP,LAT,LEXUS from 08/24/2024 FINDINGS: Two views Again noted is a left knee prosthesis. No fracture or loosening of the prosthesis components. Healed fracture site in the patella is again noted. Vascular calcification noted in the popliteal artery and runoff vessels of the upper calf indicating atherosclerotic involvement IMPRESSION: Stable appearance of the prosthesis components. DATA REPOSITORY: RADIATION DOSE DELIVERED:
== END 2025-04-19 09:00 | disposition home or self-care (01) ==
LOC: DIORS 09:00
PROVIDERS: PCP Family Medicine; Visit Provider Physician Assistant
DX: Z96.652 Presence of left artificial knee joint (principal)
CPT/HCPCS: 73560